=== PATIENT | female | born 1975 | race African-American/Black ===

== ENCOUNTER 2018-03-23 23:41 | Emergency (ER) | payer BC, OTHER ==
[~2018-03-23] VITALS: Ht 162.6 cm; Wt 86.2 kg
[~2018-03-23 23:41] MED LIST: HYDROCHLOROTHIA25 M2 PO; HYDROCODONE-AP1 EAC6 PO; KLOR-CON 1010 MEQ PO; LABETALOL HCL200 MG PO; LEVOTHYROXINE 0.1 MG PO; POTASSIUM20 PO; SLOW-MAG64 MG PO
[2018-03-23] MEDS ORDERED: TRANDATE 200 M200 M1 PO (23:56)
[2018-03-23] MEDS ORDERED: SYNTHROID125 MC1 PO (23:57)
[2018-03-24 00:41] VITALS: BP 166/102
== END 2018-03-24 00:41 | disposition home or self-care (01) ==
LOC: ER 23:41
DX: J06.9 Acute upper respiratory infection, unspecified (principal); I10 Essential (primary) hypertension; E28.2 Polycystic ovarian syndrome; E05.90 Thyrotoxicosis, unspecified without thyrotoxic crisis or storm